=== PATIENT | male | born 1960 | race Caucasian/White ===

== ENCOUNTER 2018-12-17 02:06 | Emergency (ER) | payer OTHER, BC ==
[~2018-12-17] VITALS: Ht 182.9 cm; Wt 80.7 kg
--- NOTE | 2018-12-17 02:20 | NUR ---
ERMD at bedside for MSE
--- NOTE | 2018-12-17 02:48 | NUR ---
ERMD at bedside for rectal exam
[2018-12-17] MEDS ORDERED: LIDOCAINE HCL 1% 20 ML VIAL ONE (02:59)
[2018-12-17] MEDS ORDERED: CEFTRIAXONE 1 G VIAL ONE (02:59)
[2018-12-17] MEDS ORDERED: CEFTRIAXONE 1 G VIAL IM ONE (03:00)
--- NOTE | 2018-12-17 03:21 | NUR ---
Patient discharged to home in stable conditon. Written and verbal after care instructions given. Patient verbalizes understanding of instructions. Pt ambulated out of ER in stable gait. No acute distress noted. All belongings with patient.
[2018-12-17 03:26] VITALS: BP 134/69
== END 2018-12-17 03:27 | disposition home or self-care (01) ==
LOC: ER 02:10
DX: K59.00 Constipation, unspecified (principal); K62.89 Other specified diseases of anus and rectum
CPT/HCPCS: 74021; 96372; 99284; J0696; J3490; A4663